=== PATIENT | female | born 1985 | race Caucasian/White ===

== ENCOUNTER 2019-03-24 13:00 | Emergency (ER) | payer OTHER ==
[~2019-03-24] VITALS: Ht 165.1 cm; Wt 129.3 kg
[~2019-03-24 13:00] MED LIST: CALCIUM 500 + D1 TA1 PO; COL100 PO; CYCLOBENZAPRINE5 MG PO; NORCO1 TA1 PO; SYN75 PO; SYNTHROID0.125 MG PO
[2019-03-24 13:15] VITALS: Ht 165.1 cm; Wt 129.3 kg
[2019-03-24 15:16] VITALS: BP 138/88
== END 2019-03-24 16:04 | disposition home or self-care (01) ==
LOC: ED 13:00
DX: M79.671 Pain in right foot (principal); R22.41 Localized swelling, mass and lump, right lower limb

== ENCOUNTER 2019-05-01 15:37 | Emergency (ER) | payer OTHER ==
[~2019-05-01] VITALS: Ht 162.6 cm; Wt 129.3 kg
[2019-05-01 16:14] VITALS: Ht 162.6 cm; Wt 129.3 kg
[2019-05-01 18:27] LABS: BASOPHIL % 0.6 % (0-2); PLATELET COUNT 288 x10^3mcL (130-400)
[2019-05-01 18:29] LABS: RED CELL DISTRIBUTION WIDTH 15.5 % (11.5-14.5)
[2019-05-01 18:49] LABS: ALBUMIN 3.5 g/dL (3.4-5.0); ALKALINE PHOSPHATASE 86 U/L (46-116); ALT/SGPT 24 U/L (14-59); AST/SGOT 16 U/L (15-37); BILIRUBIN TOTAL 0.23 mg/dL (0.20-1.00); CALCIUM 8.3 mg/dL (8.5-10.1); CARBON DIOXIDE 34.2 mmol/L (21-32); CHLORIDE SERUM 103 mmol/L (98-107); GFR1 > 60 mL/min; GLUCOSE SERUM 110 mg/dL (74-106); POTASSIUM SERUM 3.9 mmol/L (3.5-5.1); SODIUM SERUM 143 mmol/L (136-145); TOTAL PROTEIN, SERUM 7.6 g/dL (6.4-8.2); URIC ACID 7.8 mg/dL (2.6-6.0)
[2019-05-01 20:46] VITALS: BP 133/84
== END 2019-05-01 20:46 | disposition home or self-care (01) ==
LOC: ED 15:37
PROVIDERS: Emergency Medicine
DX: M79.672 Pain in left foot (principal); R22.42 Localized swelling, mass and lump, left lower limb
CPT/HCPCS: 36415